=== PATIENT | male | born 1995 ===

== ENCOUNTER → 2021-01-18 07:22 | Outpatient (CLI) | payer BC, SELFPAY ==
[2021-01-18 08:05] LABS: Hemoglobin A1C% w Est Avg Glu 4.7 % (4.0-6.0)
[2021-01-18 08:09] LABS: Alanine Aminotransferase 53 IU/L (<50); Albumin 4.5 g/dL (3.5-5.0); Albumin Globulin Ratio 1.3 (1.0-2.8); Alkaline Phosphatase 70 U/L (38-126); Aspartate Aminotransferase 41 IU/L (17-59); Bilirubin Total 0.5 mg/dL (0.2-1.3); Blood Urea Nitrogen 13 mg/dL (9-20); Calcium 9.3 mg/dL (8.4-10.2); Carbon Dioxide 29 mmol/L (22-32); Chloride 106 mmol/L (98-107); Cholesterol 185 mg/dL (140-199); Estimated Glomerular Filt Rate > 60.0 mL/min (>60); Globulin 3.4 g/dL (1.7-4.1); Glucose 98 mg/dL (70-100); HDL Cholesterol 37 mg/dL (40-60); HEMOLYSIS < 15 (0-50); LDL Cholesterol Calculated 118 mg/dL (<100); Potassium 4.1 mmol/L (3.4-5.1); Sodium 141 mmol/L (137-145); Total Protein 7.9 g/dL (6.3-8.2); Triglycerides 151 mg/dL (35-150)
[2021-01-18 08:35] LABS: Creatinine Urine Random 244.7 mg/dL
[2021-01-18 08:42] LABS: Microalbumi Creatinin Ratio Ur 10.2 ug/mg CR (<30); Microalbumin Urine Random 2.5 mg/dL (0-1.6)
== END ==
PROVIDERS: PCP Family Medicine; Referring Provider Family Medicine; Visit Provider Family Medicine
DX: M79.672 Pain in left foot (principal); R03.0 Elevated blood-pressure reading, without diagnosis of hypertension; Z68.41 Body mass index [BMI] 40.0-44.9, adult
CPT/HCPCS: 36415; 80053; 80061; 82043; 82570; 83036; 84443

== ENCOUNTER → 2021-06-10 10:58 | Outpatient (CLI) | payer BC, SELFPAY ==
[2021-06-10 11:21] LABS: COVID19 -Nasal RAPID Negative (Negative)
== END ==
PROVIDERS: PCP Family Medicine; Referring Provider Physician Assistant; Visit Provider Physician Assistant
DX: Z20.822 Contact with and (suspected) exposure to COVID-19 (principal)
CPT/HCPCS: 87635

== ENCOUNTER → 2021-06-13 07:36 | Outpatient (CLI) | payer BC, SELFPAY ==
[2021-06-13 08:34] LABS: COVID19 -Nasal RAPID POSITIVE (Negative)
== END ==
PROVIDERS: PCP Family Medicine; Visit Provider Nurse Practitioner Family
DX: U07.1 COVID-19 (principal); Z20.822 Contact with and (suspected) exposure to COVID-19
CPT/HCPCS: 87635

== ENCOUNTER 2022-07-07 19:59 | Emergency (ER) | payer BC, SELFPAY ==
[2022-07-07 20:02] VITALS: BP 172/88; PULSE 87; RESP 16; TEMP 36.8; O2SAT 97; BMI 39.3
--- NOTE | 2022-07-07 20:05 | DI.RAD.S_ITS ---
PROCEDURE: XR FINGER LT MIN 2V INDICATIONS: Trauma with pain and swelling TECHNIQUE: AP hand, 2 views of the 2nd digit acquired. COMPARISON: None. FINDINGS: Bones: No fractures or dislocations. No suspicious bony lesions. Soft tissues: No radiopaque foreign bodies. No suspicious soft tissue calcifications. IMPRESSION: 1. No fracture or dislocation. Dictated by: Giancarlo Bhatt M.D. on 07/07/2022 at 20:55 Approved by: Giancarlo Bhatt M.D. on 07/07/2022 at 20:56
--- NOTE | 2022-07-07 20:24 | ED_ITS ---
HPI - Extremity Injury (Upper) General Chief Complaint: Extremity Injury, Upper Stated Complaint: Left index finger inj Time Seen by Provider: 07/07/22 20:10 Source: patient Mode of arrival: Ambulatory History of Present Illness HPI narrative: 27M occasional smoker and drinker presents with the chief complaint of left index finger injury suffered just prior to arrival. He was playing football with his son and jammed it and now has pain and swelling. His symptoms are worse when he attempts to move his finger improves with rest. Denies any numbness, tingling or weakness. He denies any injury to other fingers, hand, wrist, elbow or other. He is otherwise well and free of complaint. He is right-handed Related Data Previous Rx's Medication Instructions Recorded amlodipine 5 mg tablet 5 mg PO DAILY #90 tabs 10/05/21 Allergies Allergy/AdvReac Type Severity Reaction Status Date / Time amoxicillin Allergy Severe hives Verified 07/07/22 20:02 Review of Systems Review of Systems Narrative: GENERAL: Denies chills, fatigue, malaise, fever, sweats. HEENT: Denies sinus pain, ear pain, sore throat, difficulty swallowing, dizziness. RESPIRATORY: Denies dyspnea, cough, wheezing, hemoptysis, sputum. CARDIOVASCULAR: Denies chest pain, palpitations, orthopnea, edema, GASTROINTESTINAL: Denies nausea, vomiting, abdominal pain, diarrhea, constipation, melena. : Denies dysuria, frequency, incontinence, hematuria, urinary retention. MUSCULOSKELETAL: See HPI SKIN: Denies rash, skin lesions, or other NEUROLOGIC: See HPI PSYCHIATRIC: No concerning psychosocial issues. 12 point review of systems is negative except for those stated above Patient History Medical History BMI 40.0-44.9, adult Elevated blood pressure reading Hypertension Neoplasm of uncertain behavior of skin Pain of left heel Viral wart on finger Surgical History Anesthesia History of appendectomy (~08/2015) Family History Father Cancer Mother Anemia Hypertension Thyroid disease Grandfather Hypertension Grandmother Diabetes mellitus Hypertension Family/Other Thalassemia Social History Smoking Status: Current every day smoker alcohol intake: current (1-3 drinks per week ) substance use type: does not use Smoking Status: Current every day smoker alcohol intake frequency: holidays/special occasions only Substance Use Type: does not use Exam Narrative Exam Narrative: GEN: AOx3 and in mild distress EYES: Pupils are equal, round, and reactive to light and accommodation. Extraoccular muscles are intact bilaterally. There is no subconjunctival hemorrhage or exudate. CHEST: Lungs are clear to auscultation bilaterally and free of wheezes, rales, or rhonchi. Heart rate is regular rhythm, there are no murmurs, clicks, rubs, or gallops. There is no chest wall tenderness. ABD: Abdomen is soft and nontender. There is no guarding or rebound. Bowel sounds are normal in all 4 quadrants. There is no mass or organomegaly. EXT: Full but painful flexion and extension of left index finger without obvious deformity. Full strength with active flexion and extension of the finger, cap refill less than 2 seconds, sensation intact, minimal swelling noted, perhaps a bit of ecchymosis on volar surface of PIP SKIN: Warm, pink, and dry. No erythema or rash Initial Vital Signs Initial Vital Signs: Vital Signs Temperature 98.3 F 07/07/22 20:02 Pulse Rate 87 07/07/22 20:02 Respiratory Rate 16 07/07/22 20:02 Blood Pressure 172/88 H 07/07/22 20:02 Pulse Oximetry 97 07/07/22 20:02 Oxygen Delivery Method 07/07/22 20:02 Course Orders Ordered: ED Orders 07/07/22 20:05 XR finger LT min 2V Stat Vital Signs Vital signs: Vital Signs - 8 hr 07/07/22 20:02 Temperature 98.3 F Pulse Rate 87 Respiratory Rate 16 Blood Pressure 172/88 H Pulse Oximetry 97 Oxygen Delivery Method Room Air MDM - Extremity Injury (Upper) Imaging Data Extremity x-ray #1: Radiologist's Impression: [address] [address] XRay Report Signed Patient: Jayesh Roach Jr. MR#: [id number] : 1995 Acct:[id number] Age/Sex: 27 / M Date of Service: 07/07/22 Loc: ED Accession Number: [id number] ?? Procedure: XR finger LT min 2V Ordering Provider: Hayden Mcgraw D.O. PROCEDURE:? XR FINGER LT MIN 2V ? INDICATIONS:? Trauma with pain and swelling ? TECHNIQUE:? AP hand, 2 views of the 2nd digit acquired.? ? COMPARISON:? None. ? FINDINGS:? ? Bones:? No fractures or dislocations.? No suspicious bony lesions.? ? Soft tissues:? No radiopaque foreign bodies.? No suspicious soft tissue calcifications.? ? IMPRESSION:? ? 1. No fracture or dislocation.? ? ? Dictated by: Giancarlo Bhatt M.D. on 07/07/2022 at 20:55 ? ? Approved by: Giancarlo Bhatt M.D. on 07/07/2022 at 20:56 ? MDM Narrative Medical decision making narrative: [27-year-old male with left index finger injury in the absence of neurologic symptoms] Multiple etiologies for patient's symptoms considered including, but not limited to: [Fracture, dislocation, soft tissue injury] Prior Charts reviewed: Few prior visits in our EMR accessible Imaging reviewed: No fracture or dislocation noted Patient's symptoms improved over duration of stay with above-stated therapies. Findings and discharge diagnosis discussed with patient/family followed by verbalization of understanding Return precautions discussed with patient/family whom verbalize understanding of diagnosis and plan Discharge Plan Departure Patient Disposition: Home Clinical Impression: Injury of finger of left hand Instructions: DI for Finger Sprain Activity Restrictions/Additional Instructions: *You have been diagnosed with [left index finger sprain. As we discussed there is no obvious evidence of fracture or dislocation nor significant tendinous injury on your exam or x-ray] *What to do: *Please continue to take your regular medications as directed. [ ] New medication prescriptions sent to your pharmacy: [ ] [ ] New medication written as a paper prescription [x] Tylenol and occasional Motrin for pain *Please follow up with [ Cherie] of [facility] in 2-3 days, call for an appointment. Let them know you were seen in the Emergency Department and that we ask that you be seen in follow up. We will electronically transmit a record of today's note if your PCP is in our system *Return to Emergency Department if you should have any new, worsening or concerning symptoms, such as [worsening pain, significant swelling, cold extremities, numbness, tingling, weakness or other bothersome symptoms Prescriptions: No Action amlodipine 5 mg tablet 5 mg PO DAILY Qty: 90 3RF Referrals: Talha Galicia MD [Primary Care Provider] - Candido Crespo MD [Physician] - Stand Alone Forms: Patient Portal/API
== END 2022-07-07 21:17 | disposition home or self-care (01) ==
PROVIDERS: Emergency Provider Emergency Medicine; PCP Family Medicine
DX: S69.82XA Other specified injuries of left wrist, hand and finger(s), initial encounter (principal); W23.0XXA Caught, crushed, jammed, or pinched between moving objects, initial encounter; Y93.61 Activity, american tackle football
CPT/HCPCS: 73140; 99283

== ENCOUNTER → 2024-02-23 15:51 | Outpatient (CLI) | payer BC, SELFPAY ==
[2024-02-23 17:31] LABS: Add Manual Diff / Slide Review NO; Basophils Absolute Auto 0 /uL (0-100); Basophils Percent Auto 0.4 % (0-2); Eosinophils Absolute Auto 400 /uL (0-450); Eosinophils Percent Auto 3.3 % (2-4); Hematocrit 44.9 % (41-53); Hemoglobin 13.7 g/dL (13.5-17.5); Lymphocytes Absolute Auto 2800 /uL (1100-4500); Lymphocytes Percent Auto 24.3 % (25-40); Mean Corpuscular HGB Conc 30.6 % (30-36); Mean Corpuscular Hemoglobin 21.5 PG (26-34); Mean Corpuscular Volume 70.2 fL (80-100); Monocytes Absolute Auto 700 /uL (0-900); Monocytes Percent Auto 6.2 % (3-14); Neutrophils Absolute Auto 7700 /uL (1500-7000); Neutrophils Percent Auto 65.8 % (50-75); Platelet Count 369 X10^3/uL (150-400); Red Cell Distribution Width 14.7 % (11.6-14.8); White Blood Cell Count 11.7 X10^3/uL (4.5-11.0)
[2024-02-23 17:41] LABS: Alanine Aminotransferase 60 IU/L (<50); Albumin 4.6 g/dL (3.5-5.0); Albumin Globulin Ratio 1.2 (1.0-2.8); Alkaline Phosphatase 70 U/L (38-126); Aspartate Aminotransferase 43 IU/L (17-59); BUN Creatinine Ratio 14.8 (6-22); Bilirubin Total 0.5 mg/dL (0.2-1.3); Blood Urea Nitrogen 13 mg/dL (9-20); Calcium 9.5 mg/dL (8.4-10.2); Carbon Dioxide 29 mmol/L (22-32); Chloride 103 mmol/L (98-107); Cholesterol 217 mg/dL (140-199); Estimated Glomerular Filt Rate > 60 mL/min (>60); Globulin 3.9 g/dL (1.7-4.1); Glucose 87 mg/dL (70-100); HDL Cholesterol 39 mg/dL (40-60); HEMOLYSIS < 15 (0-50); LDL Cholesterol Calculated 106 mg/dL (<100); Sodium 141 mmol/L (137-145); Total Protein 8.5 g/dL (6.3-8.2); Triglycerides 360 mg/dL (35-150)
[2024-02-23 17:53] LABS: Creatinine Urine Random 214.69 mg/dL
[2024-02-23 17:58] LABS: Microalbumin Urine Random 2.4 mg/dL (0-1.6)
[2024-02-23 18:19] LABS: TSH w/ Reflex to FT4 0.86 uIU/mL (0.47-4.68)
== END ==
PROVIDERS: PCP Family Medicine; Referring Provider Family Medicine; Visit Provider Family Medicine
DX: Z00.00 Encounter for general adult medical examination without abnormal findings (principal); G47.19 Other hypersomnia; I10 Essential (primary) hypertension
CPT/HCPCS: 36415; 80053; 80061; 82043; 82570; 84443; 85025